=== PATIENT | female | born 1965 | race American Indian/Alaskan Native ===

== ENCOUNTER 2022-01-03 15:16 | Emergency (ER) | payer SELFPAY ==
[2022-01-03 15:29] VITALS: BP 135/63
--- NOTE | 2022-01-06 09:58 | Electrocardiograph Report ---
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
== END 2022-01-03 20:00 | disposition left against medical advice (07) ==
LOC: ED 15:16
DX: R06.02 Shortness of breath (principal); Z53.21 Procedure and treatment not carried out due to patient leaving prior to being seen by health care provider
CPT/HCPCS: 93005